=== PATIENT | female | born 1955 | race Caucasian/White ===

== ENCOUNTER 2017-01-29 22:42 | Inpatient (IN) | payer OTHER ==
[~2017-01-29] VITALS: Ht 163.8 cm; Wt 98.3 kg
[2017-01-29 23:08] LABS: HEMATOCRIT 34.9 % (36.0-46.0); MCH 28.1 PG (29.0-34.0); MCHC 32.4 G/DL (30.0-36.0); MCV 86.8 FL (83-99); MEAN PLAT.VOLUME 10.3 uM^3 (9.5-12.4); PLATELET COUNT 268 K/uL (156-360); RBC DIS.WIDTH-CV 13.8 % (11.8-14.6); RBC DIS.WIDTH-SD 43.8 % (39-53); RED BLOOD COUNT 4.02 M/uL (3.80-5.20); WHITE BLOOD COUNT 18.1 K/uL (4.1-10.2)
[2017-01-29 23:21] LABS: CHLORIDE 97 mEq/L (99-109); POTASSIUM 4.2 mEq/L (3.7-5.4); SODIUM 129 mEq/L (136-147)
[2017-01-29 23:22] LABS: GLUCOSE 212 mg/dL (70-99)
[2017-01-29 23:24] LABS: ANION GAP 17 MEQ/L (2-14)
[2017-01-29 23:26] LABS: GFR ESTIMATE (CALCULATED) 15 mL/min/
[2017-01-29 23:27] LABS: UREA NITROGEN (BUN) 50 mg/dL (9-23)
[2017-01-30 02:22] LABS: INTER. NORMALIZED RATIO 1.1; PROTHROMBIN TIME 11.1 (9.2-11.2); PTT 35.7 (25-32)
[2017-01-30 02:25] LABS: TOTAL BILIRUBIN 0.7 mg/dL (0.0-1.0)
[2017-01-30 02:26] LABS: ALKALINE PHOSPHATASE 150 IU/L (3-129)
[2017-01-30 02:29] LABS: DIRECT BILIRUBIN 0.4 mg/dL (0.0-0.3)
[2017-01-30 02:38] LABS: BASE EXCESS -9.5 mEq/L (-3 to +3); BICARBONATE 17.1 mEq/L (22-26); CARBOXY HGB 1.4 % (0-5); METHEMOGLOBIN 0.9 % (0-1.5); PCO2 39 mm Hg (35-45); PO2 54 mm Hg (80-100)
[2017-01-30 02:39] LABS: COMMENTS - BLOOD GASES A+C+; DEVICE NC; O2 FLOW 2 L/MIN; SITE RR; TOTAL RESP RATE 16 resp/min; pH 7.25 (7.35-7.45)
[2017-01-30 02:40] LABS: MAGNESIUM 1.7 mg/dL (1.3-2.7)
[2017-01-30 02:46] LABS: EOSINOPHIL (%) 0 % (0-5); IMMATURE GRANULOCYTE (%) 1.5 % (0.0-0.7); IMMATURE GRANULOCYTE COUNT 0.3 K/uL; INSTRUMENT ABS NEUTROPHIL CT 15.4 K/uL; MONOCYTE (%) 7.2 % (3-12); MONOCYTE COUNT 1.3 K/uL (0-0.8); NEUTROPHIL (%) 85.8 % (45-76); NEUTROPHIL COUNT 15.4 K/uL (1.8-6.4)
[2017-01-30 03:14] LABS: ADD MIUA? YES; BILIRUBIN NEGATIVE; BLOOD MODERATE; COLOR YELLOW ((YELLOW)); GLUCOSE (STRIP) NEGATIVE; KETONES NEGATIVE; LEUKOCYTES NEGATIVE; NITRITE NEGATIVE; PROTEIN (STRIP) 30; SPECIFIC GRAVITY 1.009 (1.000-1.030); UROBILINOGEN 0.2 MG/DL (0.2-1.0)
[2017-01-30 03:24] LABS: INFLUENZA A VIRAL ANTIGEN NEGATIVE; INFLUENZA B VIRAL ANTIGEN NEGATIVE
[2017-01-30 03:26] LABS: BACTERIA RARE /HPF; EPITHELIAL CELLS RARE /HPF; HYALINE CASTS 0-5 /LPF; MUCUS TRACE /LPF; RED BLOOD CELLS 0-5 /HPF (0-5); UCUL ADDED? NO
[2017-01-30 04:39] VITALS: BP 123/57
[2017-01-30] MEDS ORDERED: ADVAIR 500/501 DISK IH (05:07)
[2017-01-30] MEDS ORDERED: ABILIFY5 MG PO (05:08)
[2017-01-30 05:10] LABS: UR CREATININE CONCENTRATION 65.9 MG/DL
[2017-01-30] MEDS ORDERED: LYRICA150 MG PO (05:10)
[2017-01-30] MEDS ORDERED: METHYLPREDNISOL32 MG PO (05:13)
[2017-01-30] MEDS ORDERED: VENTOLIN HFA18 GM IH (05:18)
[2017-01-30] MEDS ORDERED: MORPHABOND ER15 MG PO (05:19)
[2017-01-30] MEDS ORDERED: ROZEREM8 MG PO (05:41)
[2017-01-30 07:05] VITALS: BP 116/58
[2017-01-30 11:18] LABS: HEMATOCRIT 36.7 % (36.0-46.0); MCH 29.2 PG (29.0-34.0); MCHC 32.7 G/DL (30.0-36.0); MCV 89.3 FL (83-99); MEAN PLAT.VOLUME 10.5 uM^3 (9.5-12.4); PLATELET COUNT 276 K/uL (156-360); RBC DIS.WIDTH-CV 14.1 % (11.8-14.6); RBC DIS.WIDTH-SD 46.2 % (39-53); RED BLOOD COUNT 4.11 M/uL (3.80-5.20); WHITE BLOOD COUNT 13.1 K/uL (4.1-10.2)
[2017-01-30 11:43] LABS: ANION GAP 14 MEQ/L (2-14); CHLORIDE 104 MEQ/L (99-109); GFR ESTIMATE (CALCULATED) 35 mL/min/; GLUCOSE 289 mg/dL (70-99); POTASSIUM 4.2 MEQ/L (3.7-5.4); SAMPLE HEMOLYSIS CHECK 0; SAMPLE ICTERIC CHECK 0; SAMPLE LIPEMIA CHECK 0; SODIUM 139 MEQ/L (136-147); UREA NITROGEN (BUN) 39 mg/dL (9-23)
[2017-01-30] MEDS ORDERED: PREVACID30 MG PO (11:45)
[2017-01-30] MEDS ORDERED: CALCIUM 500 MG1 EACH PO (11:46)
[2017-01-30] MEDS ORDERED: WOMEN'S DAILY1 EAC2 PO (11:46)
[2017-01-30] MEDS ORDERED: CALCITRATE + D1 EACH PO (11:46)
[2017-01-30] MEDS ORDERED: VITAMIN D31000 UNI2 PO (11:46)
[2017-01-30 11:50] VITALS: BP 118/62
[2017-01-30 15:06] VITALS: BP 117/58
[2017-01-30 19:11] VITALS: BP 129/89
[2017-01-30 23:49] VITALS: BP 130/69
[2017-01-31 03:49] VITALS: BP 140/82
[2017-01-31 06:08] LABS: HEMATOCRIT 31.9 % (36.0-46.0); MCH 28.8 PG (29.0-34.0); MCHC 32.9 G/DL (30.0-36.0); MCV 87.4 FL (83-99); MEAN PLAT.VOLUME 10.7 uM^3 (9.5-12.4); PLATELET COUNT 293 K/uL (156-360); RBC DIS.WIDTH-CV 14.1 % (11.8-14.6); RBC DIS.WIDTH-SD 45.1 % (39-53); RED BLOOD COUNT 3.65 M/uL (3.80-5.20); WHITE BLOOD COUNT 11.2 K/uL (4.1-10.2)
[2017-01-31 06:37] LABS: EOSINOPHIL (%) 0 % (0-5); IMMATURE GRANULOCYTE (%) 1.2 % (0.0-0.7); IMMATURE GRANULOCYTE COUNT 0.1 K/uL; INSTRUMENT ABS NEUTROPHIL CT 9.5 K/uL; MONOCYTE (%) 4.8 % (3-12); MONOCYTE COUNT 0.5 K/uL (0-0.8); NEUTROPHIL (%) 84.7 % (45-76); NEUTROPHIL COUNT 9.5 K/uL (1.8-6.4)
[2017-01-31 06:53] LABS: ALKALINE PHOSPHATASE 121 IU/L (3-129); ANION GAP 11 MEQ/L (2-14); CHLORIDE 101 MEQ/L (99-109); GFR ESTIMATE (CALCULATED) > 59 mL/min/; GLUCOSE 438 mg/dL (70-99); MAGNESIUM 2.2 mg/dl (1.3-2.7); POTASSIUM 4.1 MEQ/L (3.7-5.4); SAMPLE HEMOLYSIS CHECK 0; SAMPLE ICTERIC CHECK 0; SAMPLE LIPEMIA CHECK 0; SODIUM 136 MEQ/L (136-147); TOTAL BILIRUBIN 0.4 MG/DL (0.0-1.0); UREA NITROGEN (BUN) 28 mg/dL (9-23)
[2017-01-31 07:00] VITALS: BP 143/69
[2017-01-31 10:57] LABS: C DIFF TOXIN ND (NEGATIVE)
[2017-01-31 11:10] VITALS: BP 170/72
[2017-01-31 15:15] VITALS: BP 129/61
[2017-01-31 19:27] VITALS: BP 185/76
[2017-01-31 23:51] VITALS: BP 168/77
[2017-02-01 03:51] VITALS: BP 164/76
[2017-02-01 05:46] LABS: HEMATOCRIT 31.4 % (36.0-46.0); MCH 29.1 PG (29.0-34.0); MCHC 33.4 G/DL (30.0-36.0); MEAN PLAT.VOLUME 10.2 uM^3 (9.5-12.4); PLATELET COUNT 345 K/uL (156-360); RBC DIS.WIDTH-CV 14.1 % (11.8-14.6); RBC DIS.WIDTH-SD 45.6 % (39-53); RED BLOOD COUNT 3.61 M/uL (3.80-5.20)
[2017-02-01 06:10] LABS: ALKALINE PHOSPHATASE 103 IU/L (3-129); DIRECT BILIRUBIN 0.2 mg/dL (0.0-0.3); LIPASE 18 U/L (1.0-51.0); TOTAL BILIRUBIN 0.6 MG/DL (0.0-1.0)
[2017-02-01 07:35] VITALS: BP 145/67
[2017-02-01 11:30] VITALS: BP 185/84
[2017-02-01 11:48] LABS: POINT-OF-CARE METER ID UU14208750; POINT-OF-CARE USER ID PUTDRM
[2017-02-01 14:55] VITALS: BP 143/71
[2017-02-01 16:31] LABS: POINT-OF-CARE METER ID UU14208750; POINT-OF-CARE USER ID PUTDRM
[2017-02-01 23:00] VITALS: BP 132/74
[2017-02-02 06:45] VITALS: BP 137/78
[2017-02-02 07:01] LABS: HEMATOCRIT 35.2 % (36.0-46.0); MCH 29.2 PG (29.0-34.0); MCHC 33.2 G/DL (30.0-36.0); MCV 87.8 FL (83-99); MEAN PLAT.VOLUME 10.5 uM^3 (9.5-12.4); NRBC (%) 0.2 /100 WBC (0-0); PLATELET COUNT 352 K/uL (156-360); RBC DIS.WIDTH-CV 14.3 % (11.8-14.6); RBC DIS.WIDTH-SD 46.4 % (39-53); RED BLOOD COUNT 4.01 M/uL (3.80-5.20); WHITE BLOOD COUNT 12.7 K/uL (4.1-10.2)
[2017-02-02 07:17] LABS: ALKALINE PHOSPHATASE 93 IU/L (3-129); ANION GAP 14 MEQ/L (2-14); CHLORIDE 102 MEQ/L (99-109); GFR ESTIMATE (CALCULATED) > 59 mL/min/; GLUCOSE 170 mg/dL (70-99); MAGNESIUM 1.9 mg/dl (1.3-2.7); SAMPLE HEMOLYSIS CHECK 0; SAMPLE ICTERIC CHECK 0; SAMPLE LIPEMIA CHECK 0; SODIUM 142 MEQ/L (136-147); TOTAL BILIRUBIN 0.8 MG/DL (0.0-1.0); UREA NITROGEN (BUN) 15 mg/dL (9-23)
[2017-02-02 07:28] LABS: Estimated Average Glucose 171 mg/dL (70-123); HEMOGLOBIN A1c (GLYCOHEMOGLOB) 7.6 % HGB (Below 5.7)
[2017-02-02 16:09] VITALS: BP 130/67
[2017-02-02 21:00] VITALS: BP 166/78
[2017-02-02 21:48] LABS: POINT-OF-CARE METER ID UU14208750
[2017-02-03 00:22] VITALS: BP 133/65
[2017-02-03 06:49] LABS: POINT-OF-CARE METER ID UU14208750
[2017-02-03 08:02] VITALS: BP 137/84
[2017-02-03 11:43] LABS: POINT-OF-CARE METER ID UU14208750
[2017-02-03 14:48] VITALS: BP 128/75
[2017-02-03 16:22] LABS: POINT-OF-CARE METER ID UU13113819; POINT-OF-CARE USER ID 515036437
[2017-02-03 17:18] LABS: POINT-OF-CARE METER ID UU14208750
[2017-02-03 22:13] LABS: POINT-OF-CARE METER ID UU14208750
[2017-02-04 00:16] VITALS: BP 120/62
[2017-02-04 03:41] VITALS: BP 132/78
[2017-02-04 06:49] LABS: POINT-OF-CARE METER ID UU14208750
[2017-02-04 07:12] VITALS: BP 146/71
[2017-02-04 07:43] LABS: EOSINOPHIL (%) 0.2 % (0-5); HEMATOCRIT 33.7 % (36.0-46.0); IMMATURE GRANULOCYTE (%) 2.1 % (0.0-0.7); IMMATURE GRANULOCYTE COUNT 0.3 K/uL; INSTRUMENT ABS NEUTROPHIL CT 12.4 K/uL; LYMPHOCYTE COUNT 1.4 K/uL (1.0-2.8); MCH 28.8 PG (29.0-34.0); MCHC 33.2 G/DL (30.0-36.0); MCV 86.6 FL (83-99); MEAN PLAT.VOLUME 10.2 uM^3 (9.5-12.4); MONOCYTE (%) 5.8 % (3-12); MONOCYTE COUNT 0.9 K/uL (0-0.8); NEUTROPHIL (%) 82.7 % (45-76); NEUTROPHIL COUNT 12.4 K/uL (1.8-6.4); PLATELET COUNT 419 K/uL (156-360); RBC DIS.WIDTH-CV 14.1 % (11.8-14.6); RBC DIS.WIDTH-SD 44.4 % (39-53); RED BLOOD COUNT 3.89 M/uL (3.80-5.20)
[2017-02-04 08:06] LABS: ANION GAP 15 MEQ/L (2-14); CHLORIDE 101 MEQ/L (99-109); GFR ESTIMATE (CALCULATED) > 59 mL/min/; MAGNESIUM 1.7 mg/dl (1.3-2.7); POTASSIUM 4.2 MEQ/L (3.7-5.4); SAMPLE HEMOLYSIS CHECK 0; SAMPLE ICTERIC CHECK 0; SAMPLE LIPEMIA CHECK 0; SODIUM 140 MEQ/L (136-147); UREA NITROGEN (BUN) 9 mg/dL (9-23)
[2017-02-04 08:09] LABS: GLUCOSE 94 mg/dL (70-99)
[2017-02-04] MEDS ORDERED: GLIMEPIRIDE1 MG PO (10:39)
[2017-02-04] MEDS ORDERED: TYLENOL REGULA325 MG PO (10:39)
[2017-02-04] MEDS ORDERED: LEVAQUIN750 MG PO (10:39)
[2017-02-04] MEDS ORDERED: TESSALON PERLE100 MG PO (10:41)
[2017-02-04 11:53] LABS: POINT-OF-CARE METER ID UU14208750
== END 2017-02-04 12:29 | disposition home or self-care (01) | DRG 871 ==
LOC: EME 22:42 → EDOF 01-30 02:01 → 2EAST 01-30 02:01
PROVIDERS: Emergency Medicine; Hospitalist; Internal Medicine; Internal Medicine Gastroenterology; Physician Assistant Medical
PROC: 0DB68ZX Excision of Stomach, Via Natural or Artificial Opening Endoscopic, Diagnostic (ICD-10-PCS; principal; 2017-02-03)
DX: A41.9 Sepsis, unspecified organism (principal); N17.9 Acute kidney failure, unspecified; E87.2 Acidosis; J18.9 Pneumonia, unspecified organism; I95.9 Hypotension, unspecified; E87.1 Hypo-osmolality and hyponatremia; K76.89 Other specified diseases of liver; E11.9 Type 2 diabetes mellitus without complications; E66.9 Obesity, unspecified; E86.0 Dehydration; J45.20 Mild intermittent asthma, uncomplicated; J98.11 Atelectasis; K29.70 Gastritis, unspecified, without bleeding; K42.9 Umbilical hernia without obstruction or gangrene; K57.90 Diverticulosis of intestine, part unspecified, without perforation or abscess without bleeding; K81.9 Cholecystitis, unspecified; N12 Tubulo-interstitial nephritis, not specified as acute or chronic; Z68.36 Body mass index [BMI] 36.0-36.9, adult; Z79.51 Long term (current) use of inhaled steroids; Z79.899 Other long term (current) drug therapy; Z79.84 Long term (current) use of oral hypoglycemic drugs; Z82.49 Family history of ischemic heart disease and other diseases of the circulatory system; Z85.3 Personal history of malignant neoplasm of breast; D64.9 Anemia, unspecified; D71 Functional disorders of polymorphonuclear neutrophils; I89.0 Lymphedema, not elsewhere classified; R79.89 Other specified abnormal findings of blood chemistry; G62.9 Polyneuropathy, unspecified; T39.395A Adverse effect of other nonsteroidal anti-inflammatory drugs [NSAID], initial encounter
CPT/HCPCS: 36600; 70450; 71020; 71250; 74176; 76705; 76770; 78227; 80048; 80053; 80076; 81003; 82436; 82570; 82575; 82607; 82803; 82948; 83036; 83605; 83690; 83735; 83935; 84100; 84133; 84300; 84439; 84443; 85025; 85027; 85610; 85730; 87040; 87070; 87106; 87205; 87493; 87502; 88305; 88342 TC; 89190; 94640; 94640 76; 94760; 94799; 99281; 99285; A9537; J0456; J0692; J0696; J1644; J1815; J2805; J2930; J3370; J7030; J7050

== ENCOUNTER 2018-03-16 21:42 | Emergency (ER) | payer OTHER ==
[~2018-03-16] VITALS: Ht 162.6 cm; Wt 78.8 kg
[~2018-03-16 21:42] MED LIST: ABILIFY10 MG PO; ADVAIR 500/501 DISK IH; CALCITRATE + D1 EACH PO; CALCIUM 500 MG1 EACH PO; GLIMEPIRIDE1 MG PO; LEVAQUIN750 MG PO; LYRICA150 MG PO; METHYLPREDNISOL32 MG PO; MORPHABOND ER15 MG PO; PREVACID30 MG PO; ROZEREM8 MG PO; TESSALON PERLE100 MG PO; TYLENOL REGULA325 MG PO; VENTOLIN HFA18 GM IH; VITAMIN D31000 UNI2 PO; WOMEN'S DAILY1 EAC2 PO
[2018-03-16 22:24] LABS: HEMATOCRIT 36.8 % (36.0-46.0); HEMOGLOBIN 12.2 G/DL (11.9-15.5); MCH 29.5 PG (29.0-34.0); MCHC 33.2 G/DL (30.0-36.0); MCV 88.9 FL (83-99); PLATELET COUNT 197 K/uL (156-360); RBC DIS.WIDTH-CV 13.4 % (11.8-14.6); RED BLOOD COUNT 4.14 M/uL (3.80-5.20)
[2018-03-16 22:31] LABS: CHLORIDE 103 mEq/L (99-109); SODIUM 137 mEq/L (136-147)
[2018-03-16 22:33] LABS: APPEARANCE SL.HAZY ((CLEAR)); BILIRUBIN NEGATIVE; BLOOD NEGATIVE; COLOR AMBER ((YELLOW)); GLUCOSE (STRIP) NEGATIVE; KETONES 5; LEUKOCYTES SMALL; NITRITE NEGATIVE; PROTEIN (STRIP) 100
[2018-03-16 22:34] LABS: GLUCOSE 146 mg/dL (70-99); TOTAL PROTEIN 7.7 g/dL (6.4-8.3)
[2018-03-16 22:35] LABS: TOTAL BILIRUBIN 1.6 mg/dL (0.0-1.0)
[2018-03-16 22:37] LABS: ALKALINE PHOSPHATASE 86 IU/L (3-129); CREATININE 0.9 mg/dL (0.6-1.3); GFR ESTIMATE (CALCULATED) > 59 mL/min/
[2018-03-16 22:38] LABS: UREA NITROGEN (BUN) 16 mg/dL (9-23)
[2018-03-16 22:39] LABS: AST (GOT) 19 IU/L (2-34)
[2018-03-16 22:40] LABS: ALT (GPT) 17 IU/L (3-49)
[2018-03-16 23:07] LABS: BACTERIA NONE SEEN /HPF; EPITHELIAL CELLS 1+ /HPF; MUCUS 3+ /LPF; UCUL ADDED? YES; WHITE BLOOD CELLS 40-50 /HPF (0-5)
[2018-03-17 00:15] LABS: BASOPHIL (%) 0.1 % (0-1); EOSINOPHIL (%) 0 % (0-5); IMMATURE GRANULOCYTE (%) 0.4 % (0.0-0.7); LYMPHOCYTE (%) 9.7 % (15-42); LYMPHOCYTE COUNT 1.5 K/uL (1.0-2.8); MONOCYTE (%) 9.3 % (3-12); MONOCYTE COUNT 1.4 K/uL (0-0.8); NEUTROPHIL (%) 80.5 % (45-76); NEUTROPHIL COUNT 12.2 K/uL (1.8-6.4)
[2018-03-17] MEDS ORDERED: KEFLEX500 MG PO (02:40)
[2018-03-17 03:28] VITALS: BP 120/60
[2018-03-19] MEDS ORDERED: MORPHINE SULFAT15 MG PO (22:09)
[2018-03-19] MEDS ORDERED: MELATONIN5 M1 PO (22:14)
[2018-03-19] MEDS ORDERED: CELEXA20 MG PO (22:15)
[2018-03-19] MEDS ORDERED: GLUCOPHAGE XR,500 MG PO (22:15)
[2018-03-19] MEDS ORDERED: FLONASE16 G1 BOTH NARES (22:16)
[2018-03-19] MEDS ORDERED: ALENDRONATE SOD35 MG PO (22:30)
== END 2018-03-17 03:29 | disposition home or self-care (01) ==
LOC: EME 21:42
DX: N12 Tubulo-interstitial nephritis, not specified as acute or chronic (principal); J45.909 Unspecified asthma, uncomplicated; K21.9 Gastro-esophageal reflux disease without esophagitis; F32.9 Major depressive disorder, single episode, unspecified; Z85.3 Personal history of malignant neoplasm of breast; Z88.2 Allergy status to sulfonamides; Z88.0 Allergy status to penicillin; Z88.5 Allergy status to narcotic agent
CPT/HCPCS: 74177; 80053; 81003; 83605; 85025; 85027; 87040; 87801; 99281; 99285; J0696; J7040